=== PATIENT | male | born 1980 | race African-American/Black ===

== ENCOUNTER 2023-03-24 22:19 | Emergency (ER) | payer SELFPAY ==
[2023-03-24 22:34] VITALS: BP 172/104; PULSE 99; RESP 18; TEMP 98.5; BMI 28.7
[2023-03-25 01:43] LABS: BASO % 1.2 % (0-2.0); EOS % 4.3 % (0-4.5); HEMATOCRIT 46.1 % (35.4-49); HEMOGLOBIN 15.2 GM/dL (11.7-16.9); LYMPH % 19.8 % (8-40); MCHC 32.9 g/dl (32.0-35.9); MEAN CELL VOLUME 85.1 fl (80-96); MONO % 9.9 % (3.8-10.2); NEUT % 64.8 % (42.8-82.8); PLATELET COUNT 257 10^3/uL (134-434); RBC 5.41 M/mm3 (4.00-5.60); RDW 14.3 % (11.9-15.9); WHITE BLOOD COUNT 8.6 K/mm3 (4.0-10.0)
[2023-03-25 01:51] LABS: INR 1.01 (0.83-1.09); PROTHROMBIN TIME (PATIENT) 11.7 SEC (9.7-13.0)
[2023-03-25 01:54] LABS: ACTIVATED PTT 30.5 SECONDS (25.2-36.5)
[2023-03-25 02:00] LABS: POTASSIUM 4.4 mmol/L (3.5-5.1)
[2023-03-25 02:02] LABS: CALCIUM 9.4 mg/dL (8.5-10.1)
[2023-03-25 02:03] LABS: BLOOD UREA NITROGEN 15.1 mg/dL (7-18)
[2023-03-25 02:07] LABS: BILIRUBIN,TOTAL 0.7 mg/dL (0.2-1); TOT PROT 7.9 g/dl (6.4-8.2)
[2023-03-25 02:15] LABS: CREATININE 1.2 mg/dL (0.55-1.3)
== END 2023-03-25 06:19 | disposition home or self-care (01) ==
LOC: JER 22:19
DX: R10.9 Unspecified abdominal pain (principal); K40.90 Unilateral inguinal hernia, without obstruction or gangrene, not specified as recurrent
CPT/HCPCS: 36415; 74177-TC; 80053; 83605; 85025; 85610; 85730; 86850; 86900; 86901; 99285-25